=== PATIENT | female | born 1980 | race Caucasian/White ===

== ENCOUNTER 2023-09-28 16:56 | Emergency (ER) | payer BC ==
[~2023-09-28] VITALS: Ht 172.7 cm; Wt 63.5 kg
[~2023-09-28 16:56] MED LIST: DOXY100T2 PO; METR500T PO; OXYC-130 PO
[2023-09-28 17:10] VITALS: BP_SYST 118; PULSE 52; RESP 18; TEMP 97.5; O2SAT 98
[2023-09-28] MEDS ORDERED: LIDOCAINE 1% 10 MG/ML, 20 ML MDV INJ ONE (17:15)
[2023-09-28] MEDS ORDERED: BACITRACIN 1 GM OINT TP ONE (17:15)
[2023-09-28 17:44] VITALS: BP_SYST 118; PULSE 52; RESP 18; TEMP 97.5; O2SAT 98
== END 2023-09-28 17:46 | disposition home or self-care (01) ==
LOC: SED 16:56
DX: S61.210A Laceration without foreign body of right index finger without damage to nail, initial encounter (principal); Z79.899 Other long term (current) drug therapy; W26.0XXA Contact with knife, initial encounter; Y93.89 Activity, other specified; Y92.89 Other specified places as the place of occurrence of the external cause; Y99.8 Other external cause status
CPT/HCPCS: 99282

== ENCOUNTER 2023-09-30 17:24 | Emergency (ER) | payer BC ==
[~2023-09-30] VITALS: Ht 170.2 cm; Wt 65.8 kg
[2023-09-30 17:33] VITALS: BP_SYST 101; PULSE 66; RESP 22; TEMP 98.3; O2SAT 97
[2023-09-30 18:13] VITALS: BP_SYST 101; PULSE 66; RESP 22; TEMP 98.3; O2SAT 97
== END 2023-09-30 18:14 | disposition home or self-care (01) ==
LOC: SED 17:24
DX: S61.210D Laceration without foreign body of right index finger without damage to nail, subsequent encounter (principal); Z48.00 Encounter for change or removal of nonsurgical wound dressing; Z79.899 Other long term (current) drug therapy; W26.0XXD Contact with knife, subsequent encounter
CPT/HCPCS: 99281

== ENCOUNTER 2023-10-05 09:00 | Emergency (ER) | payer BC | END 2023-10-05 09:55 | disposition home or self-care (01) | LOC: SED 09:00 | DX: S61.210D Laceration without foreign body of right index finger without damage to nail, subsequent encounter (principal); Z48.02 Encounter for removal of sutures; W26.0XXD Contact with knife, subsequent encounter; Z79.899 Other long term (current) drug therapy | CPT/HCPCS: 99283 ==